=== PATIENT | female | born 1980 | race Caucasian/White ===

== ENCOUNTER 2023-10-28 09:42 | Outpatient (CLI) | payer BC ==
[2023-10-28 14:43] LABS: BASOPHILS # (AUTO) 0.1 X10'3 (0-0.2); EOSINOPHILS # (AUTO) 0.2 X10'3 (0-0.9); EOSINOPHILS % (AUTO) 2.8 % (0-6); HEMATOCRIT 36.7 % (35.0-45.0); HEMOGLOBIN 12.3 g/dl (12.0-16.0); LYMPHOCYTES # (AUTO) 2.2 X10'3 (1.1-4.8); LYMPHOCYTES % (AUTO) 39.1 % (21-51); MEAN CORPUSCULAR HEMOGLOBIN 31.6 PG (27.0-31.0); MEAN CORPUSCULAR HGB CONC 33.6 g/dL (33.0-36.5); MEAN CORPUSCULAR VOLUME 94.1 FL (78-98); MEAN PLATELET VOLUME 8.5 FL (7.4-10.4); MONOCYTES # (AUTO) 0.4 X10'3 (0-0.9); MONOCYTES % (AUTO) 7.6 % (2-12); NEUTROPHILS # (AUTO) 2.7 X10'3 (1.8-7.7); NEUTROPHILS % (AUTO) 49.5 % (42-75); PLATELET COUNT 260 X10'3 (140-440); RED CELL DISTRIBUTION WIDTH 13.5 % (11.5-14.5); WHITE BLOOD COUNT 5.5 X10'3 (4.5-11.0)
[2023-10-28 14:45] LABS: BILIRUBIN,URINE NEGATIVE (Neg); CLARITY,URINE CLEAR (Clear); COLOR,URINE YELLOW (Yellow); GLUCOSE, URINE NEGATIVE (Neg); KETONES,URINE NEGATIVE (Neg); LEUKOCYTE ESTERASE ,URINE NEGATIVE (Neg); NITRITES, URINE NEGATIVE (Neg); OCCULT BLOOD,URINE NEGATIVE (Neg); PH,URINE 6.5 (4.8-8.0); PROTEIN,URINE NEGATIVE (Neg); UROBILINOGEN,URINE 0.2 E.U/dL (0.2-1.0)
[2023-10-28 14:48] LABS: UA COLLECTION TYPE CLN CATCH MIDSTREAM
[2023-10-28 15:05] LABS: ALANINE AMINOTRANSFERASE 59 U/L (12-78); ALBUMIN 4.1 G/DL (3.4-5.0); ALBUMIN/GLOBULIN RATIO 1.1 (1.1-1.5); ALKALINE PHOSPHATASE 33 IU/L (46-116); ANION GAP 8 (8-16); ASPARTATE AMINO TRANSFERASE 35 U/L (10-37); BILIRUBIN,TOTAL 0.4 MG/DL (0.1-1.0); BLOOD UREA NITROGEN 17 MG/DL (7-18); CALCIUM 8.9 MG/DL (8.5-10.1); CHLORIDE 106 MMOL/L (99-107); CREATININE 0.85 MG/DL (0.40-0.90); GLUCOSE 84 MG/DL (70-104); SODIUM 144 MMOL/L (135-145); TOTAL CARBON DIOXIDE 30.2 MMOL/L (24-32); TOTAL PROTEIN 7.7 G/DL (6.4-8.2); eGFR 73 ML/MIN
[2023-10-28 15:07] LABS: HCG SERUM QL NEGATIVE
[2023-10-28] MEDS ORDERED: VALA500T41 PO (15:08)
[2023-10-28] MEDS ORDERED: OMEP40CA21 PO (15:08)
[2023-10-28] MEDS ORDERED: PRAV40TA3 PO (15:08)
[2023-10-28] MEDS ORDERED: LEVO50TA PO (15:08)
[2023-10-28] MEDS ORDERED: ALPR1TAB7 PO (15:08)
[2023-11-29] MEDS ORDERED: IBUP-1984 PO (11:40)
[2023-11-29] MEDS ORDERED: LEVO75TA7 PO (11:40)
== END 2023-10-28 23:59 | disposition home or self-care (01) ==
LOC: LAB 09:42 → EDSTATUS 11-03 15:30
PROVIDERS: ATTEND Obstetrics & Gynecology Obstetrics
DX: Z01.818 Encounter for other preprocedural examination (principal); N83.202 Unspecified ovarian cyst, left side; E03.9 Hypothyroidism, unspecified; Z87.891 Personal history of nicotine dependence; Z79.890 Hormone replacement therapy; Z79.899 Other long term (current) drug therapy; Z90.49 Acquired absence of other specified parts of digestive tract; Z90.89 Acquired absence of other organs; Z98.890 Other specified postprocedural states; Z88.0 Allergy status to penicillin; Z88.5 Allergy status to narcotic agent
CPT/HCPCS: 36415; 71046; 80053; 81003; 84703; 85025; 86885; 86900; 86901; 93005

== ENCOUNTER 2023-11-30 05:47 | Day surgery (SDC) | payer BC ==
[2023-11-21 10:51] LABS: BILIRUBIN,URINE NEGATIVE (Neg); CLARITY,URINE CLEAR (Clear); COLOR,URINE YELLOW (Yellow); GLUCOSE, URINE NEGATIVE (Neg); KETONES,URINE NEGATIVE (Neg); LEUKOCYTE ESTERASE ,URINE NEGATIVE (Neg); NITRITES, URINE NEGATIVE (Neg); OCCULT BLOOD,URINE NEGATIVE (Neg); PROTEIN,URINE NEGATIVE (Neg); UROBILINOGEN,URINE 0.2 E.U/dL (0.2-1.0)
[2023-11-21 10:54] LABS: UA COLLECTION TYPE CLN CATCH MIDSTREAM
[2023-11-21 10:55] LABS: BASOPHILS % (AUTO) 0.8 % (0-1); EOSINOPHILS # (AUTO) 0.1 X10'3 (0-0.9); EOSINOPHILS % (AUTO) 1.9 % (0-6); LYMPHOCYTES # (AUTO) 2.2 X10'3 (1.1-4.8); LYMPHOCYTES % (AUTO) 37.3 % (21-51); MEAN CORPUSCULAR HEMOGLOBIN 31.8 PG (27.0-31.0); MEAN CORPUSCULAR HGB CONC 33.9 g/dL (33.0-36.5); MEAN CORPUSCULAR VOLUME 93.9 FL (78-98); MEAN PLATELET VOLUME 8.8 FL (7.4-10.4); MONOCYTES # (AUTO) 0.4 X10'3 (0-0.9); MONOCYTES % (AUTO) 6.2 % (2-12); NEUTROPHILS # (AUTO) 3.2 X10'3 (1.8-7.7); NEUTROPHILS % (AUTO) 53.8 % (42-75); PRE OP HEMATOCRIT 40.1 % (35.0-45.0); PRE OP HEMOGLOBIN 13.6 g/dL (12.0-16.0); PRE OP PLATELET COUNT 258 X10'3 (140-440); RED BLOOD COUNT 4.27 X10'6 (4.20-5.60); RED CELL DISTRIBUTION WIDTH 13.3 % (11.5-14.5)
[2023-11-21 10:59] LABS: HCG SERUM QL NEGATIVE
[2023-11-21 11:00] LABS: ALBUMIN 4.3 G/DL (3.4-5.0); ALBUMIN/GLOBULIN RATIO 1.1 (1.1-1.5); ALKALINE PHOSPHATASE 35 IU/L (46-116); BLOOD UREA NITROGEN 13 MG/DL (7-18); BUN/CREATININE RATIO 17.1 (10.0-20.0); CALCIUM 9.2 MG/DL (8.5-10.1); CHLORIDE 104 MMOL/L (99-107); CREATININE 0.76 MG/DL (0.40-0.90); PRE OP ALT 37 U/L (30-65); PRE OP ANION GAP 8 (8-16); PRE OP AST 26 U/L (10-37); PRE OP BILIRUB, TOTAL 0.6 MG/DL (0.0-1.0); PRE OP GLUCOSE 73 MG/DL (70-104); PRE OP POTASSIUM 3.5 MMOL/L (3.4-5.1); PRE OP SODIUM 141 MMOL/L (135-145); TOTAL CARBON DIOXIDE 29.5 MMOL/L (24-32); TOTAL PROTEIN 8.3 G/DL (6.4-8.2); eGFR 83 ML/MIN
[~2023-11-30] VITALS: Ht 167.6 cm; Wt 62.0 kg
[2023-11-30] VITALS (17 sets, daily range): BP systolic 90–107; BP diastolic 49–88; PULSE 44–63; RESP 14–20; TEMP 97.6; O2SAT 96–100
[~2023-11-30 05:47] MED LIST: ALPR1TAB7 PO; IBUP-1984 PO; LEVO75TA7 PO; OMEP40CA21 PO; PRAV40TA3 PO; VALA500T41 PO; ringers solution, lacted 1,000 ML IV SCH
[2023-11-30] MEDS: clindamycin-Cleocin 900mg/D5W 50 ML IV ONE (05:51)
[2023-11-30] MEDS: gentamicin inj 60 MG in normal saline 100ml IV soln 98.5 ML IV ONE (06:14)
[2023-11-30] MEDS: famotidine 20mg tablet PO ONE (06:15)
[2023-11-30] MEDS ORDERED: midazolam 1 mg/ML 2ml injection ONE (07:39)
[2023-11-30] MEDS ORDERED: propofol inj 20 ML IV ONE ×3 (07:42)
[2023-11-30] MEDS ORDERED: rocuronium 10mg/ml inj IV ONE (07:42)
[2023-11-30] MEDS ORDERED: neostigmine methylsulfate 1 MG/ML 10ml vial ONE (07:42)
[2023-11-30] MEDS ORDERED: acetaminophen 1,000mg/100ml IV 100 ML IV ONE (07:42)
[2023-11-30] MEDS ORDERED: diphenhydrAMINE 50 mg/ml inj ONE (07:42)
[2023-11-30] MEDS ORDERED: dexamethasone sod phosphate 4mg/ml inj. ONE (07:42)
[2023-11-30] MEDS ORDERED: LIDOcaine 2% (20mg/ml) 5ml vial ONE (07:42)
[2023-11-30] MEDS ORDERED: ondansetron/PF 4mg/2ml inj ONE (07:42)
[2023-11-30] MEDS ORDERED: morphine 4 MG/ML inj SYRINge IV PRN (07:50)
[2023-11-30] MEDS ORDERED: proCHLORperazine 10 MG/2 ml inj IV PRN (07:50)
[2023-11-30] MEDS ORDERED: scopolamine 1MG/72H patch 1 PATCH PATCH.TD.3 TD PRN (07:50)
[2023-11-30] MEDS ORDERED: meperidine/PF 25mg/ml syringe IV PRN (07:50)
[2023-11-30] MEDS ORDERED: ringers solution, lacted 1,000 ML IV SCH (07:50)
[2023-11-30] MEDS ORDERED: ondansetron/PF 4mg/2ml inj IV PRN (07:50)
[2023-11-30] MEDS ORDERED: hydrALAZINE 20mg/ml inj. IV PRN (07:50)
[2023-11-30] MEDS ORDERED: labetalol 20mg/4ml (5mg/ml) syringe IV PRN (07:50)
[2023-11-30] MEDS ORDERED: morphine 2 MG/ML inj. syringe IV PRN (07:50)
[2023-11-30] MEDS: BUPIVAcaine 0.25% w/Epi /PF 30ml vial ONE (09:00)
[2023-11-30] MEDS ORDERED: glycopyrrolate 0.2mg/ml inj ONE (09:52)
[2023-11-30] MEDS: BUPIVAcaine 2.5mg/ml inj 50ml vial (contains preservative) ONE (10:15)
[2023-11-30] MEDS: meperidine/PF 25mg/ml syringe IV PRN (10:52)
[2023-11-30] MEDS: proMETHazine 25mg rectal suppository RC PRN (12:40)
== END 2023-11-30 13:32 | disposition home or self-care (01) ==
LOC: PAS 05:47
PROVIDERS: ATTEND Obstetrics & Gynecology Obstetrics
DX: D27.0 Benign neoplasm of right ovary (principal); E03.9 Hypothyroidism, unspecified; E78.5 Hyperlipidemia, unspecified; K21.9 Gastro-esophageal reflux disease without esophagitis; F41.9 Anxiety disorder, unspecified; G47.30 Sleep apnea, unspecified; I20.9 Angina pectoris, unspecified; I25.2 Old myocardial infarction; Z87.891 Personal history of nicotine dependence; Z79.890 Hormone replacement therapy; Z79.899 Other long term (current) drug therapy; Z90.49 Acquired absence of other specified parts of digestive tract; Z90.89 Acquired absence of other organs; Z98.890 Other specified postprocedural states; Z88.0 Allergy status to penicillin; Z88.5 Allergy status to narcotic agent
CPT/HCPCS: 36415; 58661; 58662; 80053; 81003; 82948; 84703; 85025; 86885; 86900; 86901; J0131; J0665; J1100; J1200; J1580; J2175; J2250; J2405; J2704; J2710; J3490; J7030; J7120; Z7506; Z7508; Z7512; A4618; A7000; S0020